=== PATIENT | female | born 1985 | race African-American/Black ===

== ENCOUNTER 2020-06-03 13:36 | Emergency (ER) | payer OTHER ==
[~2020-06-03] VITALS: Ht 182.9 cm; Wt 208.2 kg
[2020-06-03 13:46] VITALS: Ht 182.9 cm; Wt 208.2 kg
[2020-06-03 19:49] VITALS: BP 162/83
== END 2020-06-03 19:49 | disposition home or self-care (01) ==
LOC: ED 13:36
DX: S39.012A Strain of muscle, fascia and tendon of lower back, initial encounter (principal); S80.02XA Contusion of left knee, initial encounter; S80.01XA Contusion of right knee, initial encounter; S09.8XXA Other specified injuries of head, initial encounter; S60.811A Abrasion of right wrist, initial encounter; J45.909 Unspecified asthma, uncomplicated; Z88.6 Allergy status to analgesic agent; V49.49XA Driver injured in collision with other motor vehicles in traffic accident, initial encounter; Y93.I9 Activity, other involving external motion; Y92.488 Other paved roadways as the place of occurrence of the external cause; Y99.8 Other external cause status